=== PATIENT | female | born 1980 | race Asian ===

== ENCOUNTER 2024-09-14 01:36 | Emergency (ER) | payer OTHER, MEDICAID ==
[~2024-09-14] VITALS: Ht 157.5 cm; Wt 104.0 kg
--- NOTE | 2024-09-14 02:14 | ED.PDOC ---
ECONOMICS ANALYST HPI Comments 43 y/o F, with a history of HTN, presents with significant other for 1x day history of abnormal vaginal bleeding. Patient reports on being, approximately, 7x weeks with her second , currently ([id number], LMP 07/27/24). No recent injuries, prior ailments, or sick contact endorsed. She denies having any abdominal pain, urinary symptoms, nausea, vomiting, lightheadedness, fever, chills, or further associated symptoms. Patient reports upcoming appointment with her ECONOMICS ANALYST tomorrow. Chief Complaint: Vaginal Bleed Time Seen by MD: 02:00 Reviewed Notes: Nurses Notes, Medications, Allergies Allergies: Coded Allergies: NO KNOWN ALLERGIES (Unverified , 09/14/24) Information Source: Patient Mode of Arrival: Ambulatory Timing: Days Prehospital treatment: None Severity: Moderate Past Medical History PAST MEDICAL HISTORY: HTN Surgical History: Denies all surgeries 2 Para 1 AB 0 LMP 07/27/24 Family History Family History: Unknown Social History Smoker: Non-Smoker Alcohol: Denies ETOH Use Drugs: Denies Drug Use Lives In: Home All Other Systems: Reviewed and Negative (Comprehensive systems review obtained and negative except for what is stated in the HPI.) Physical Exam General Appearance: No Apparent Distress, Normal HEENT: Normal ENT Inspection, Pharynx Normal, TMs Normal Neck: Full Range of Motion, Non-Tender, Normal, Normal Inspection Respiratory: Chest Non-Tender, Lungs Clear, No Accessory Muscle Use, No Respiratory Distress, Normal Breath Sounds Cardiovascular: No Edema, No JVD, No Murmur, No Gallop, Normal Peripheral Pulses, Regular Rate/Rhythm Breast Exam: Deferred Gastrointestinal: No Organomegaly, Non Tender, No Pulsatile Mass, Normal Bowel Sounds, Soft Genitalia: Deferred Pelvic: Deferred Rectal: Deferred Extremities: No calf tenderness, Normal capillary refill, Normal inspection, Normal range of motion, Non-tender, No pedal edema Musculoskeletal : Apperance: Normal Neurologic: Alert, underwear hemmer II-XII nml as Tested, No Motor Deficits, Normal Affect, Normal Mood, No Sensory Deficits Cerebellar Function: Normal Reflexes: Normal Skin: Dry, Normal Color, Warm Lymphatic: No Adenopathy Was a procedure done? Was a procedure done?: No Differential Diagnosis (APPEALS RN) Vaginal Bleeding: - Complete, - Incomplete, - Inevitable, - Missed, - Threatened, Abruptio Placentae, Blood Loss Anemia, Hormonal, Placenta Previa, UTI X-Ray, Labs, Meds, VS Vital Signs Date Time Temp Pulse Resp B/P (MAP) Pulse Ox O2 Delivery O2 Flow Rate FiO2 09/14/24 05:30 55 21 98 Room Air* 0 21 09/14/24 05:23 97.8 55 21 164/80 (108) 98 97.8 09/14/24 05:23 55 21 98 Room Air 09/14/24 05:18 55 164/80 09/14/24 03:55 98.9 68 16 155/85 (108) 97 98.9 09/14/24 02:55 71 189/122 09/14/24 01:50 98.0 71 20 189/122 (144) 98 98.0 Lab Test 09/14/24 02:05 09/14/24 01:57 Range/Units Beta HCG, Quantitative 402.9 H 1.5-4.2 mIU/mL Urine Color Colorless Yellow Urine Clarity Turbid H Clear Urine pH 5.5 5.0-9.0 Urine Specific [place] 1.011 1.001-1.035 Urine Protein Trace H Negative Urine Ketones Negative Negative Urine Blood 3+ H Negative /uL Urine Nitrite Negative Negative Urine Bilirubin Negative Negative Urine Urobilinogen Normal Negative mg/dL Urine Leukocyte Esterase 2+ Negative /uL Urine RBC 2346 0 - 4 /hpf Urine Microscopic WBC 70 H 0-5 /HPF Urine Squamous Epithelial Cells Few <5 /hpf Urine Bacteria Few H None Seen /hpf Urine Glucose Normal Normal mg/dL Current Medications Medications (Trade) Dose Ordered Sig/Kenzie Route Start Time Stop Time Status Last Admin Labetalol HCl (Labetalol HCl) 10 mg ONCE ONCE IV 09/14/24 02:15 09/14/24 02:16 DC 09/14/24 02:55 Ondansetron HCl (Zofran) 4 mg ONCE ONCE IV 09/14/24 02:45 09/14/24 02:46 DC 09/14/24 02:55 Time of 1ST Reevaluation: 02:30 Reevaluation 1ST: Unchanged Patient Education/Counseling: Diagnosis, Treatment, Need For Follow Up Family Education/Counseling: Diagnosis, Treatment, Need For Follow Up Additional Information Previous visits reviewed: None The following tests were ordered, and results were reviewed by me: OB US, UA, Beta HCG quant Additional Information was gathered from interviewing the following independent historians: None I reviewed and agreed with the following test results read by other providers: OB US I discussed treatment and results with medical personnel and: patient, significant other Departure 1 Departure Time of Disposition: 07:45 (Patient likely with a threatened or incomplete . We will discharge patient home with outpatient follow up) Impression: Primary Impression: Threatened miscarriage in early Disposition: 01 HOME / SELF CARE / HOMELESS Condition: Stable Referrals: GERALD PATEL DO Additional Instructions: You have a threatened or incomplete miscarriage. Your beta hcg level today was 400 . Your ultrasound did not show a fetus today. You should follow up with OBGYN within three days to recheck your blood work. If your symptoms worsen or you have any other concerns then please return to the ER. Discharged With: Self Critical Care Note Critical Care Time?: No Stability Stability form required: No Heart Score Heart Score: Heart Score Response (Comments) Value History N/A 0 EKG N/A 0 Age N/A 0 Risk Factors N/A 0 Troponin N/A 0 Total 0 I personally scribed for ROSCOE DENIS ([email or web address]) on 09/14/24 at 02:14. Electronically submitted by Elian Carr ([email or web address]). ROSCOE DENIS Sep 14, 2024 02:14 CHICO MORALES MD Sep 14, 2024 07:46
[2024-09-14 02:31] LABS: Urine Bacteria FEW /hpf (None Seen); Urine Blood 3+ /uL (Negative); Urine Clarity Turbid (Clear); Urine Color Colorless (Yellow); Urine Protein, UAD TRACE (Negative); Urine Specific Gravity 1.011 (1.001-1.035); Urine Squamous Epithelial Cell FEW /hpf (<5); Urine Urobilinogen Normal (Negative); Urine WBC 70 /HPF (0-5); Urine pH 5.5 (5.0-9.0)
[2024-09-14] MEDS: LABETALOL HCL 20 MG/4 ML VL IV ONE (02:55)
[2024-09-14] MEDS: ONDANSETRON HCL 4 MG/2 ML VIAL IV ONE (02:55)
[2024-09-14 05:23] VITALS: TEMP 97.8
[2024-09-14 05:30] VITALS: PULSE 55; RESP 21; O2SAT 98
--- NOTE | 2024-09-14 07:37 | DVH ---
OB ULTRASOUND <14 WEEKS: HISTORY: vag bleed TECHNIQUE: Multiple real-time grayscale sonographic images of the pelvis with duplex Doppler color f low, spectral and M-mode analysis. TRANSDUCERS: Transabdominal and transvaginal COMPARISON: None FINDINGS: The uterus measures 10.1 x 6.0 x 5.4 cm The cervix is not visualized Right ovary is not visualized. Left ovary measures 4.1 x 2.1 x 2.6 cm with normal Doppler color flow. Left ovarian cyst or corpus matt teal cyst measures 1.7 cm. No intrauterine is visualized. IMPRESSION: Thickened endometrium, without visualized gestational sac, pole or cardiac activity. Diff erential considerations include early, normal intrauterine , an anembryonic and sp ontaneous . Recommend correlation with follow-up beta hCG levels. Repeat ultrasound could be performed if clinically indicated.
[2024-09-14 07:53] VITALS: BP 174/95; PULSE 69; RESP 18; O2SAT 98
== END 2024-09-14 08:03 | disposition home or self-care (01) ==
LOC: ER 01:36
DX: O20.0 Threatened abortion (principal); I10 Essential (primary) hypertension; Z3A.01 Less than 8 weeks gestation of pregnancy
CPT/HCPCS: 36415; 76801; 76817; 81001; 84702; 96374; 96375; 99285; J2405

== ENCOUNTER 2024-09-21 16:31 | Emergency (ER) | payer OTHER, MEDICAID ==
[~2024-09-21] VITALS: Ht 157.5 cm; Wt 105.4 kg
[2024-09-21] MEDS ORDERED: CLON0.1T PO (16:53)
--- NOTE | 2024-09-21 16:54 | ED.PDOC ---
History of Present Illness HPI Comments 43-year-old female came to the ER stating that she has been having problems controlling her blood pressure with a past few days. Her blood pressure prior to arrival to the ER was to 200 over 99. In the ER her blood pressure was 188 over 106. States that she has been taking her medications on time. Recently had miscarriage. States that she has been having nausea but no vomiting diarrhea. Sign denies dizziness. Denies chest pain. Denies any other symptoms. Time Seen by MD: 16:41 Reviewed Notes: Nurses Notes, Medications, Allergies Allergies: Coded Allergies: NO KNOWN ALLERGIES (Unverified , 09/14/24) Home Meds Active Scripts Clonidine Hydrochloride (Clonidine Hcl) 0.1 Mg Tab, 1 TAB PO QPM for 5 Days, #5 TAB 2 Refills Prov:ARLET BOYER MD 09/21/24 Information Source: Patient Mode of Arrival: Ambulatory Severity: Moderate Timing: Days Duration: Since onset Past Medical History PAST MEDICAL HISTORY: HTN Surgical History: Denies all surgeries COMMISSIONS SPECIALIST History: No Pertinent COMMISSIONS SPECIALIST History Family History Family History: Unknown Social History Smoker: Non-Smoker Alcohol: Denies ETOH Use Drugs: Denies Drug Use Lives In: Home Constitutional: denies: chills, diaphoresis, fatigue, fever, malaise, sweats, weakness, others EENTM: denies: blurred vision, double vision, ear bleeding, ear discharge, ear drainage, ear pain, ear ringing, eye pain, eye redness, hearing loss, mouth pain, mouth swelling, nasal discharge, nose bleeding, nose congestion, nose pain , photophobia, tearing, throat pain, throat swelling, voice changes, others Respiratory: denies: cough, hemoptysis, orthopnea, SOB at rest, shortness of breath, SOB with excertion, stridor, wheezing, others Cardiovascular: denies: chest pain, dizzy spells, diaphoresis, Dyspnea on exertion, edema, irregular heart beat, left arm pain, lightheadedness, palpitations, PND, syncope, others Gastrointestinal: reports: nausea; denies: abdomen distended, abdominal pain, blood streaked bowels, constipated, diarrhea, dysphagia, difficulty swallowing, hematemesis, melena, poor appetite, poor fluid intake, rectal bleeding, rectal pain, vomiting, others Genitourinary: denies: abnormal vagina bleeding, burning, dyspareunia, dysuria, flank pain, frequency, hematuria, incontinence, pain, , vagina discharge, urgency, others Neurological: denies: dizziness, fainting, headache, left sided numbness, left sided weakness, numbness, paresthesia, pre-existing deficit, right sided numbness, right sided weakness, seizure, speech problems, tingling, tremors, weakness, others Musculoskeletal: denies: back pain, gout, joint pain, joint swelling, muscle pain, muscle stiffness, neck pain, others Integumetry: denies: bruises, change in color, change in hair/nails, dryness, laceration, lesions, lumps, rash, wounds, others Allergic/Immunocompromised: denies: Difficulty Healing, Frequent Infections, Hives, Itching, others Hematologic/Lymphatic: denies: anemia, blood clots, easy bleeding, easy bruising, swollen glands, others Endocrine: denies: excessive hunger, excessive sweating, excessive thirst, excessive urination, flushing, intolerance to cold, intolerance to heat, unexplained weight gain, unexplained weight loss, others Psychiatric: denies: anxiety, bipolar disorder, depression, hopeless, panic disorder, schizophrenia, sleepless, suicidal, others Physical Exam General Appearance: Moderate Distress HEENT: Normal ENT Inspection, Pharynx Normal, TMs Normal Neck: Full Range of Motion, Non-Tender, Normal, Normal Inspection Respiratory: Chest Non-Tender, Lungs Clear, No Accessory Muscle Use, No Respiratory Distress, Normal Breath Sounds Cardiovascular: No Edema, No JVD, No Murmur, No Gallop, Normal Peripheral Pulses, Regular Rate/Rhythm Breast Exam: Deferred Gastrointestinal: No Organomegaly, Non Tender, No Pulsatile Mass, Normal Bowel Sounds, Soft Genitalia: Deferred Pelvic: Deferred Rectal: Deferred Extremities: No calf tenderness, Normal capillary refill, Normal inspection, Normal range of motion, Non-tender, No pedal edema Musculoskeletal : Apperance: Normal Neurologic: Alert, director talent management II-XII nml as Tested, No Motor Deficits, Normal Affect, Normal Mood, No Sensory Deficits Cerebellar Function: Normal Reflexes: Normal Skin: Dry, Normal Color, Warm Peripheral Pulses: 3+ Radial (R), 3+ Radial (L) Lymphatic: No Adenopathy Was a procedure done? Was a procedure done?: No Differential Dx Considerations may include: Hypertension X-Ray, Labs, Meds, VS Patient alert. Blood pressure elevated. Vitals stable. Answering questions. Ambulating. Was given Norvasc. Was given Ativan. Not septic. No leg swelling. No shortness a breath. No chest pain. Heart rate within normal limits. No sign of any acute process. Explained to the patient. Continue monitoring. Was told to follow up with her primary care physician. Was told to come back if there is any problem. Time of 1ST Reevaluation: 16:51 Reevaluation 1ST: Unchanged Time of 2ND Reevaluation: 17:37 Reevaluation 2ND: Improved Patient Education/Counseling: Diagnosis, Treatment, Prognosis, Need For Follow Up Family Education/Counseling: No Family Present SEPSIS Sepsis Screen Departure 1 Departure Time of Disposition: 16:53 Impression: Primary Impression: Hypertensive emergency Disposition: 01 HOME / SELF CARE / HOMELESS Condition: Good e-Prescriptions Clonidine Hydrochloride (Clonidine Hcl) 0.1 Mg Tab 1 TAB PO QPM for 5 Days, #5 TAB 2 Refills Prov: ARLET BOYER MD 09/21/24 Discharged With: Self Critical Care Note Critical Care Time?: No Stability Stability form required: No Heart Score Heart Score: Heart Score Response (Comments) Value History N/A 0 EKG N/A 0 Age N/A 0 Risk Factors N/A 0 Troponin N/A 0 Total 0 ARLET BOYER MD Sep 21, 2024 16:54
--- NOTE | 2024-09-21 18:11 | ECG ---
[facility] Test Date: 2024-09-21 Test Time: 16:49:11 Pat Name: EZIO EPPS Department: ER Room: Gender: F Retail Product Demo Specialist: LAURA : 1980 Requested By: ARLET BOYER Order Number: [id number] Reading MD: Xavi Go Measurements Intervals [place] Rate: 67 P: 16 VT: 134 QRS: -86 QRSD: 103 T: 16 QT: 449 QTc: 474 Interpretive Statements Sinus rhythm Incomplete RBBB and LAFB Low voltage, precordial leads Probable right ventricular hypertrophy Electronically Signed On 09-24-2024 20:01:54 PDT by Xavi Go Please click the below link to view image of tracing.
[2024-09-21] MEDS: LORazepam 0.5 MG TAB PO ONE (18:22)
[2024-09-21] MEDS: amLODIPine BESYLATE 5 MG TAB PO ONE (18:22)
--- NOTE | 2024-09-21 19:29 | DVH ---
CT BRAIN WITHOUT CONTRAST HISTORY: headache TECHNIQUE: Axial scans were obtained from the skull base through the vertex without contrast. [place] l and coronal reformats were generated. One or more of the following radiation dose reduction techniq ues were used for this examination: automated exposure control, adjustment of the mA and/or kV accord ing to patient size, use of iterative reconstruction technique. COMPARISON: None FINDINGS: No acute intracranial hemorrhage or evidence of large vessel territorial infarction identified at thi s time. Small bilateral basal ganglia calcifications noted. No midline shift. The basilar cisterns a re patent. Woods-white differentiation appears relatively preserved. Small amount of layering fluid / mucous in the right maxillary sinus. The other paranasal sinuses and mastoid air cells are otherwise grossly clear. No displaced calvarial abnormalities identified. IMPRESSION: No acute intracranial findings. If symptoms persist, follow-up MRI may be considered to further evalu ate.
[2024-09-21 20:49] VITALS: BP 189/92; PULSE 62; RESP 18; TEMP 98.2; O2SAT 96
== END 2024-09-21 21:10 | disposition home or self-care (01) ==
LOC: ER 16:31
DX: I16.1 Hypertensive emergency (principal); I10 Essential (primary) hypertension; Z79.899 Other long term (current) drug therapy
CPT/HCPCS: 70450; 93005